=== PATIENT | female | born 1940 | race Caucasian/White ===

== ENCOUNTER 2020-06-22 11:03 | Day surgery (SDC) | payer MEDICARE, OTHER ==
[~2020-06-22 11:03] MED LIST: DIPRIVAN 200 MG/20 ML IV ONE; Ketamine HCl 50 MG/ML ONE
[2020-06-22] MEDS ORDERED: Depo-Medrol 40 MG/ML IM ONE (11:04)
[2020-06-22] MEDS ORDERED: BUPIVACAINE 0.5% VIAL IJ ONE (11:04)
[2020-06-22] MEDS ORDERED: PROVENTIL 2.5 MG/3 ML NEB IH ONE ×2 (12:32→13:17)
[2020-06-22 13:25] VITALS: PULSE 98; O2SAT 97
[2020-06-22] MEDS ORDERED: Lactated Ringers 1,000 ML IV ONE (13:54)
--- NOTE | 2020-06-23 14:56 | XRAY ---
21 seconds fluoroscopy time in surgery for bilateral SI joint injections.
--- NOTE | 2020-06-25 22:55 | XRAY ---
Indication: Bilateral SI joint injections. Intraoperative fluoroscopy was provided for 21 seconds. 4 digital spot images submitted for interpretation demonstrate a posterior needle tip projected over the inferior aspect of each sacroiliac joint. Correlate with intraoperative findings/report.
== END 2020-06-22 13:48 | disposition home or self-care (01) ==
LOC: SDC-PAIN 11:03
PROVIDERS: ATTEND Psychiatry & Neurology Pain Medicine
DX: M25.562 Pain in left knee (principal); M25.561 Pain in right knee; G20 Parkinson's disease; J44.9 Chronic obstructive pulmonary disease, unspecified; K21.9 Gastro-esophageal reflux disease without esophagitis; Z79.899 Other long term (current) drug therapy
CPT/HCPCS: 72202; 77002; 94640; G0260; 27096; 99100; J1030; J2704; J7609; A9270-GY

== ENCOUNTER 2020-07-20 10:52 | Day surgery (SDC) | payer MEDICARE, OTHER ==
[2020-07-20] MEDS ORDERED: Depo-Medrol 40 MG/ML IM ONE (10:53)
[2020-07-20] MEDS ORDERED: LIDOCAINE HCL 2% 100 MG/5 ML IJ ONE (10:53)
[2020-07-20] MEDS ORDERED: Lactated Ringers 1,000 ML IV ONE (13:49)
--- NOTE | 2020-07-20 14:17 | XRAY ---
Indication: Bilateral L4-S1 MBB. Intraoperative fluoroscopy was provided for 18 seconds. 2 digital spot images submitted for interpretation demonstrates posterior needle tips projecting over the expected left and right L4-S1 nerve roots. Correlate with intraoperative findings/report. Incidental L4-L5 spinous process fusion hardware.
--- NOTE | 2020-07-20 16:55 | XRAY ---
18 seconds of fluoroscopy was used in surgery for a bilateral L4-L5, L5-S1 MBB.
== END 2020-07-20 13:13 | disposition home or self-care (01) ==
LOC: SDC-PAIN 10:52
PROVIDERS: ATTEND Psychiatry & Neurology Pain Medicine
DX: M47.816 Spondylosis without myelopathy or radiculopathy, lumbar region (principal); G20 Parkinson's disease; J44.9 Chronic obstructive pulmonary disease, unspecified; K21.9 Gastro-esophageal reflux disease without esophagitis; Z79.899 Other long term (current) drug therapy
CPT/HCPCS: 64493; 64494; 72020; 77002; 99100; J1030; J2704

== ENCOUNTER 2020-08-03 14:12 | Day surgery (SDC) | payer MEDICARE, OTHER ==
[2020-08-03] MEDS ORDERED: BUPIVACAINE 0.5% VIAL IJ ONE (14:13)
[2020-08-03] MEDS ORDERED: Depo-Medrol 40 MG/ML IM ONE (14:13)
[2020-08-03] MEDS ORDERED: Ketamine HCl 50 MG/ML ONE (15:47)
[2020-08-03] MEDS ORDERED: DIPRIVAN 200 MG/20 ML IV ONE (15:47)
--- NOTE | 2020-08-03 16:35 | XRAY ---
Indication: Bilateral L4-S1 MBB. Intraoperative fluoroscopy was provided for 18 seconds. Single digital spot image submitted for interpretation demonstrates posterior needle tips projecting over the expected left and right L4-S1 nerve roots. Correlate with intraoperative findings/report. Incidental L4-L5 spinous process fusion hardware.
--- NOTE | 2020-08-03 16:41 | XRAY ---
18 seconds fluoroscopy time in surgery for bilateral L4-S1 MBB.
[2020-08-03] MEDS ORDERED: Lactated Ringers 1,000 ML IV ONE (16:52)
== END 2020-08-03 16:09 | disposition home or self-care (01) ==
LOC: SDC-PAIN 14:12
PROVIDERS: ATTEND Psychiatry & Neurology Pain Medicine
DX: M47.816 Spondylosis without myelopathy or radiculopathy, lumbar region (principal); G20 Parkinson's disease; K21.9 Gastro-esophageal reflux disease without esophagitis; J44.9 Chronic obstructive pulmonary disease, unspecified; Z79.899 Other long term (current) drug therapy
CPT/HCPCS: 64493; 64494; 72020; 77002; J1030; J2704

== ENCOUNTER 2020-10-19 10:02 | Day surgery (SDC) | payer MEDICARE, OTHER ==
[2020-10-19] MEDS ORDERED: Depo-Medrol 40 MG/ML IM ONE (10:03)
[2020-10-19] MEDS ORDERED: BUPIVACAINE 0.5% VIAL IJ ONE (10:03)
[2020-10-19] MEDS ORDERED: Ketamine HCl 50 MG/ML ONE (12:25)
[2020-10-19] MEDS ORDERED: DIPRIVAN 200 MG/20 ML IV ONE (12:25)
--- NOTE | 2020-10-19 13:34 | XRAY ---
Indication: Bilateral SI joint injection. Intraoperative fluoroscopy was provided for 3 seconds. 4 digital spot images submitted for interpretation demonstrates posterior needle tip projecting over the inferior left and right SI joints. Correlate with intraoperative findings/report.
--- NOTE | 2020-10-19 14:11 | XRAY ---
33 seconds of fluoroscopy was used in surgery for a bilateral SI joint injection.
[2020-10-19] MEDS ORDERED: Lactated Ringers 1,000 ML IV ONE (15:02)
== END 2020-10-19 13:00 | disposition home or self-care (01) ==
LOC: SDC-PAIN 10:02
PROVIDERS: ATTEND Psychiatry & Neurology Pain Medicine
DX: M46.1 Sacroiliitis, not elsewhere classified (principal); J44.9 Chronic obstructive pulmonary disease, unspecified; G20 Parkinson's disease; K21.9 Gastro-esophageal reflux disease without esophagitis; Z79.899 Other long term (current) drug therapy
CPT/HCPCS: 27096; 72202; 77002; G0260; 99100; J1030; J2704

== ENCOUNTER 2020-12-14 11:09 | Day surgery (SDC) | payer MEDICARE, OTHER ==
[2020-12-14] MEDS ORDERED: BUPIVACAINE 0.5% VIAL IJ ONE (11:10)
[2020-12-14] MEDS ORDERED: Depo-Medrol 40 MG/ML IM ONE (11:10)
[2020-12-14] MEDS ORDERED: DIPRIVAN 200 MG/20 ML IV ONE (12:34)
[2020-12-14] MEDS ORDERED: Ketamine HCl 50 MG/ML ONE (12:34)
--- NOTE | 2020-12-14 14:14 | XRAY ---
Indication: Bilateral L4-S1 MBB. Intraoperative fluoroscopy provided for 37 seconds. Single digital spot image submitted for interpretation demonstrates posterior needle tips projecting over the expected left and right L4-S1 nerve roots. Correlate with intraoperative findings and report. Incidental L4-L5 spinous process fusion hardware.
--- NOTE | 2020-12-14 14:16 | XRAY ---
37 seconds fluoroscopy time in surgery for bilateral L4-S1 MBB.
[2020-12-14] MEDS ORDERED: Lactated Ringers 1,000 ML IV ONE (16:21)
== END 2020-12-14 13:03 | disposition home or self-care (01) ==
LOC: SDC-PAIN 11:09
PROVIDERS: ATTEND Psychiatry & Neurology Pain Medicine
DX: M47.816 Spondylosis without myelopathy or radiculopathy, lumbar region (principal); J44.9 Chronic obstructive pulmonary disease, unspecified; G20 Parkinson's disease; K21.9 Gastro-esophageal reflux disease without esophagitis; Z79.899 Other long term (current) drug therapy
CPT/HCPCS: 64493; 64494; 72020; 77002; J1030; J2704

== ENCOUNTER 2021-01-25 09:50 | Day surgery (SDC) | payer MEDICARE, OTHER ==
[2021-01-25] MEDS ORDERED: Depo-Medrol 40 MG/ML IM ONE (09:51)
[2021-01-25] MEDS ORDERED: BUPIVACAINE 0.5% VIAL IJ ONE (09:51)
[2021-01-25] MEDS ORDERED: Xylocaine 1% Vial 30 ML PF IJ ONE (09:51)
[2021-01-25] MEDS ORDERED: DIPRIVAN 200 MG/20 ML IV ONE (11:15)
--- NOTE | 2021-01-25 11:28 | XRAY ---
Exam: AP upright portable chest film from 01/25/2021. Comparison: None. Indication: Same day service; preop; shortness of breath. Findings: The transverse heart size appears within normal limits. Atherosclerotic vascular calcification is seen within the aortic knob. There is mild tortuosity of both the ascending and descending thoracic aorta. Mild nonspecific chronic central bronchial wall thickening is seen. Minimal linear scarring/atelectasis is seen within the right midlung field and at the left lung base. No air space infiltrates to suggest pneumonia are seen. Pulmonary vascularity appears within normal limits. No Adalgisa B lines or pleural effusions are seen. There is no pneumothorax. The bones are demineralized. No acute osseous process is seen. Scattered arthritic changes are noted. Impression: 1. Minimal linear scarring/atelectasis is seen within the right midlung zone and left lung base. 2. I see no findings of heart failure/pulmonary edema, pneumonic infiltrate, or other acute cardiopulmonary disease.
--- NOTE | 2021-01-25 16:22 | XRAY ---
20 seconds fluoroscopy time in surgery for right L4-S1 RFA.
[2021-01-25] MEDS ORDERED: Lactated Ringers 1,000 ML IV ONE (16:40)
--- NOTE | 2021-01-26 22:12 | XRAY ---
Indication: Right L4-S1 RFA. Intraoperative fluoroscopy was provided for 20 seconds. 5 digital spot images submitted for interpretation demonstrate posterior needle tips projected over the expected course of the right L4-S1 nerve roots. Incidentally, there is a metallic orthopedic device posteriorly in the midline projected over the L4 and L5 spinous processes. Correlate with intraoperative findings/report.
== END 2021-01-25 12:30 | disposition home or self-care (01) ==
LOC: SDC-PAIN 09:50
PROVIDERS: ATTEND Psychiatry & Neurology Pain Medicine
DX: M47.816 Spondylosis without myelopathy or radiculopathy, lumbar region (principal); J44.9 Chronic obstructive pulmonary disease, unspecified; G20 Parkinson's disease; K21.9 Gastro-esophageal reflux disease without esophagitis; Z79.899 Other long term (current) drug therapy
CPT/HCPCS: 64635; 64636; 71045; 72100; 77002; J1030; J2001; J2704

== ENCOUNTER 2021-02-01 10:44 | Day surgery (SDC) | payer MEDICARE, OTHER ==
[2021-02-01] MEDS ORDERED: Xylocaine 1% Vial 30 ML PF IJ ONE (10:45)
[2021-02-01] MEDS ORDERED: Depo-Medrol 40 MG/ML IM ONE (10:45)
[2021-02-01] MEDS ORDERED: BUPIVACAINE 0.5% VIAL IJ ONE (10:45)
[2021-02-01] MEDS ORDERED: DIPRIVAN 200 MG/20 ML IV ONE (12:42)
--- NOTE | 2021-02-01 13:28 | XRAY ---
50 seconds fluoroscopy time in surgery for left L4-S1 RFA.
--- NOTE | 2021-02-01 13:38 | XRAY ---
Indication: Left L4-S1 RFA. Intraoperative fluoroscopy provided for 50 seconds. 2 digital spot images submitted for interpretation demonstrates posterior needle tips projecting over the expected left L4-S1 nerve roots. Correlate with intraoperative findings/report. Incidental L4-L5 spinous process fusion hardware.
[2021-02-01] MEDS ORDERED: Lactated Ringers 1,000 ML IV ONE (16:04)
== END 2021-02-01 13:00 | disposition home or self-care (01) ==
LOC: SDC-PAIN 10:44
PROVIDERS: ATTEND Psychiatry & Neurology Pain Medicine
DX: M47.816 Spondylosis without myelopathy or radiculopathy, lumbar region (principal); G20 Parkinson's disease; K21.9 Gastro-esophageal reflux disease without esophagitis; J44.9 Chronic obstructive pulmonary disease, unspecified; Z79.899 Other long term (current) drug therapy
CPT/HCPCS: 72100; 77002; J1030; J2001; J2704

== ENCOUNTER 2021-09-14 10:56 | Day surgery (SDC) | payer MEDICARE, OTHER ==
[2021-09-14] MEDS ORDERED: Depo-Medrol 40 MG/ML IM ONE (10:57)
[2021-09-14] MEDS ORDERED: Sodium Chloride 0.9% 10 ML FLUSH Syringe IJ ONE (10:57)
[2021-09-14] MEDS ORDERED: DIPRIVAN 200 MG/20 ML IV ONE (12:55)
[2021-09-14] MEDS ORDERED: Lactated Ringers 1,000 ML IV ONE (13:32)
--- NOTE | 2021-09-14 14:08 | XRAY ---
Indication: Left L3-L5 transforaminal CARLY. Intraoperative fluoroscopy provided for 42 seconds. 4 digital spot images submitted for interpretation demonstrates posterior needle tips projecting of the expected left L3 and L4 nerve roots. Small amount of contrast injected for needle tip placement. Correlate with intraoperative findings/report. Incidental L4-L5 spinous process fusion hardware.
--- NOTE | 2021-09-14 14:15 | XRAY ---
42 seconds fluoroscopy time in surgery for left L3-L5 transforaminal CARLY.
== END 2021-09-14 13:25 | disposition home or self-care (01) ==
LOC: SDC-PAIN 10:56
PROVIDERS: ATTEND Psychiatry & Neurology Pain Medicine
DX: M54.16 Radiculopathy, lumbar region (principal); Z79.899 Other long term (current) drug therapy
CPT/HCPCS: 64483; 64484; 72100; 77003; J1030; J2704; Q9966

== ENCOUNTER 2021-10-04 09:09 | Day surgery (SDC) | payer MEDICARE, OTHER ==
[2021-10-04] MEDS ORDERED: Sodium Chloride 0.9% 10 ML FLUSH Syringe IJ ONE (09:10)
[2021-10-04] MEDS ORDERED: Depo-Medrol 40 MG/ML IM ONE (09:10)
[2021-10-04] MEDS ORDERED: DIPRIVAN 200 MG/20 ML IV ONE (09:10)
[2021-10-04] MEDS ORDERED: Lactated Ringers 1,000 ML IV ONE (11:19)
--- NOTE | 2021-10-04 13:18 | XRAY ---
44 seconds of fluoroscopy was used in surgery for a left L3-L5 transforaminal CARLY.
--- NOTE | 2021-10-04 13:24 | XRAY ---
Indication: Left L3-L5 transforaminal CARLY. Intraoperative fluoroscopy provided for 44 seconds. 4 digital spot image submitted for interpretation demonstrates posterior needle tips projecting over the expected left L3 and L4 nerve roots. Small amount of contrast injected for needle tip placement. Correlate with intraoperative findings/report. Incidental L4-L5 spinous process fusion hardware.
== END 2021-10-04 12:00 | disposition home or self-care (01) ==
LOC: SDC-PAIN 09:09
PROVIDERS: ATTEND Psychiatry & Neurology Pain Medicine
DX: M54.16 Radiculopathy, lumbar region (principal); G20 Parkinson's disease; Z79.899 Other long term (current) drug therapy
CPT/HCPCS: 64483; 64484; 72100; 77003; J1030; J2704; Q9966

== ENCOUNTER 2021-12-20 09:03 | Day surgery (SDC) | payer MEDICARE, OTHER ==
[2021-12-20] MEDS ORDERED: Depo-Medrol 40 MG/ML IM ONE (09:04)
[2021-12-20] MEDS ORDERED: BUPIVACAINE 0.5% VIAL IJ ONE (09:04)
[2021-12-20] MEDS ORDERED: DIPRIVAN 200 MG/20 ML IV ONE (11:07)
[2021-12-20] MEDS ORDERED: Lactated Ringers 1,000 ML IV ONE (11:57)
--- NOTE | 2021-12-20 11:57 | XRAY ---
Indication: Bilateral L4-S1 MBB. Intraoperative fluoroscopy provided for 26 seconds. Single digital spot images submitted for interpretation demonstrates posterior needle tips projecting over expected left and right L4-S1 nerve roots. Correlate with intraoperative findings/report. Incidental L4-L5 spinous process fusion hardware.
--- NOTE | 2021-12-20 12:06 | XRAY ---
26 seconds of fluoroscopy was used in surgery for a bilateral L4-S1 MBB.
== END 2021-12-20 11:35 | disposition home or self-care (01) ==
LOC: SDC-PAIN 09:03
PROVIDERS: ATTEND Psychiatry & Neurology Pain Medicine
DX: M47.816 Spondylosis without myelopathy or radiculopathy, lumbar region (principal); Z79.899 Other long term (current) drug therapy
CPT/HCPCS: 64493; 64494; 72020; 77002; J1030; J2704

== ENCOUNTER 2022-01-03 12:58 | Day surgery (SDC) | payer MEDICARE, OTHER ==
[2022-01-03] MEDS ORDERED: Lactated Ringers 1,000 ML IV ONE (16:24)
--- NOTE | 2022-01-03 18:32 | XRAY ---
Indication: Right L4-S1 RFA. Intraoperative fluoroscopy provided for 32 seconds. 3 digital spot image submitted for interpretation demonstrates posterior needle tips projecting over the expected right L4-S1 nerve roots. Correlate with intraoperative findings/report. Incidental L4-S1 spinous process fusion hardware
--- NOTE | 2022-01-04 09:35 | XRAY ---
32 seconds fluoroscopy time in surgery for L4-S1 RFA.
== END 2022-01-03 16:52 | disposition home or self-care (01) ==
LOC: SDC-PAIN 12:58
PROVIDERS: ATTEND Psychiatry & Neurology Pain Medicine
DX: M47.816 Spondylosis without myelopathy or radiculopathy, lumbar region (principal); Z79.899 Other long term (current) drug therapy
CPT/HCPCS: 72100; 77002; 99100

== ENCOUNTER 2022-01-10 10:24 | Day surgery (SDC) | payer MEDICARE, OTHER ==
[2022-01-10] MEDS ORDERED: BUPIVACAINE 0.5% VIAL IJ ONE (10:25)
[2022-01-10] MEDS ORDERED: Xylocaine 1% Vial 30 ML PF IJ ONE (10:25)
[2022-01-10] MEDS ORDERED: Depo-Medrol 40 MG/ML IM ONE (10:25)
[2022-01-10] MEDS ORDERED: Lactated Ringers 1,000 ML IV ONE (13:07)
[2022-01-10] MEDS ORDERED: DIPRIVAN 200 MG/20 ML IV ONE (13:30)
--- NOTE | 2022-01-10 14:37 | XRAY ---
Indication: Left L4-S1 RFA. Intraoperative fluoroscopy provided for 24 seconds. 3 digital spot images submitted for interpretation demonstrates posterior needle tips projecting over the expected left L4-S1 nerve roots. Correlate with intraoperative findings/report. Incidental L4-L5 spinous process fusion hardware.
--- NOTE | 2022-01-10 15:06 | XRAY ---
24 seconds fluoroscopy time in surgery for left L4-S1 RFA.
== END 2022-01-10 14:00 | disposition home or self-care (01) ==
LOC: SDC-PAIN 10:24
PROVIDERS: ATTEND Psychiatry & Neurology Pain Medicine
DX: M47.816 Spondylosis without myelopathy or radiculopathy, lumbar region (principal); Z79.899 Other long term (current) drug therapy
CPT/HCPCS: 64635; 64636; 72100; 77002; 99100; J1030; J2001; J2704

== ENCOUNTER 2022-07-11 08:58 | Day surgery (SDC) | payer MEDICARE, OTHER ==
[2022-07-11] MEDS ORDERED: Sodium Chloride 0.9(Preservative Free) 10 ML IJ ONE (08:59)
[2022-07-11] MEDS ORDERED: Depo-Medrol 40 MG/ML IM ONE (08:59)
[2022-07-11] MEDS ORDERED: DIPRIVAN 200 MG/20 ML IV ONE (11:11)
[2022-07-11] MEDS ORDERED: Lactated Ringers 1,000 ML IV ONE (11:27)
--- NOTE | 2022-07-11 12:13 | XRAY ---
Indication: Right L3-L5 transforaminal CARLY. Intraoperative fluoroscopy provided for 26 seconds. 4 digital spot image submitted for interpretation demonstrates posterior needle tips projecting over the expected right L3 and L4 nerve roots. Small amount of contrast injected for needle tip placement. Correlate with intraoperative findings/report. Incidental L4-L5 spinous process fusion hardware.
--- NOTE | 2022-07-11 12:25 | XRAY ---
26 seconds of fluoroscopy was used surgery for a right L3-L5 transforaminal CARLY.
== END 2022-07-11 11:31 | disposition home or self-care (01) ==
LOC: SDC-PAIN 08:58
PROVIDERS: ATTEND Psychiatry & Neurology Pain Medicine
DX: M54.16 Radiculopathy, lumbar region (principal); Z79.899 Other long term (current) drug therapy
CPT/HCPCS: 64483; 64484; 72100; 77003; J1030; J2704; Q9966

== ENCOUNTER 2022-08-15 10:06 | Day surgery (SDC) | payer MEDICARE, OTHER ==
[2022-08-15] MEDS ORDERED: Sodium Chloride 0.9(Preservative Free) 10 ML IJ ONE (10:07)
[2022-08-15] MEDS ORDERED: Depo-Medrol 40 MG/ML IM ONE (10:07)
[2022-08-15] MEDS ORDERED: Lactated Ringers 1,000 ML IV ONE (11:54)
[2022-08-15] MEDS ORDERED: MORPHINE SULFATE 2 MG INJ ONE (12:16)
--- NOTE | 2022-08-15 13:21 | XRAY ---
Indication: Left L3-L5 transforaminal CARLY. Intraoperative fluoroscopy provided for 1 minute 17 seconds. 3 digital spot image submitted for interpretation demonstrates posterior needle tips projecting over the expected left L3 and L4 nerve roots. Small amount of contrast injected for needle tip placement. Correlate with intraoperative findings/report. Incidental L4-L5 spinous process fusion hardware.
--- NOTE | 2022-08-15 14:28 | XRAY ---
1 minute 17 seconds of fluoroscopy was used in surgery for a left L3-L5 transforaminal CARLY.
== END 2022-08-15 12:35 | disposition home or self-care (01) ==
LOC: SDC-PAIN 10:06
PROVIDERS: ATTEND Psychiatry & Neurology Pain Medicine
DX: M54.16 Radiculopathy, lumbar region (principal); Z79.899 Other long term (current) drug therapy
CPT/HCPCS: 64493; 64494; 72100; 77003; J1030; J2270; Q9966

== ENCOUNTER 2022-10-10 13:00 | Day surgery (SDC) | payer MEDICARE, OTHER ==
[2022-10-10] MEDS ORDERED: Sodium Chloride 0.9(Preservative Free) 10 ML IJ ONE (13:01)
[2022-10-10] MEDS ORDERED: Depo-Medrol 40 MG/ML IM ONE (13:01)
[2022-10-10] MEDS ORDERED: DIPRIVAN 200 MG/20 ML IV ONE (15:13)
--- NOTE | 2022-10-10 16:40 | XRAY ---
Indication: Right L3-L5 transforaminal CARLY. Intraoperative fluoroscopy provided for 40 seconds. 6 digital spot image submitted for interpretation demonstrates posterior needle tips projecting over the expected right L3 and L4 nerve roots. Small amount of contrast injected for needle tip placement. Correlate with intraoperative findings/report. Incidental L4-L5 spinous process fusion hardware.
[2022-10-10] MEDS ORDERED: Lactated Ringers 1,000 ML IV ONE (16:42)
--- NOTE | 2022-10-10 16:42 | XRAY ---
40 seconds fluoroscopy time in surgery for right L3-L5 transforaminal CARLY.
== END 2022-10-10 15:45 | disposition home or self-care (01) ==
LOC: SDC-PAIN 13:00
PROVIDERS: ATTEND Psychiatry & Neurology Pain Medicine
DX: M54.16 Radiculopathy, lumbar region (principal)
CPT/HCPCS: 64483; 64484; 72100; 77003; J1030; J2704; Q9966

== ENCOUNTER 2023-03-20 13:29 | Day surgery (SDC) | payer MEDICARE, OTHER ==
[2023-03-20] MEDS ORDERED: Sodium Chloride 0.9(Preservative Free) 10 ML IJ ONE (13:30)
[2023-03-20] MEDS ORDERED: Depo-Medrol 40 MG/ML IM ONE (13:30)
[2023-03-20] MEDS ORDERED: Decadron 4 MG INJ IV ONE (13:30)
[2023-03-20] MEDS ORDERED: LIDOCAINE HCL 1% 50 MG/5 ML VL PF IJ ONE (13:30)
[2023-03-20] MEDS ORDERED: DIPRIVAN 200 MG/20 ML IV ONE (16:09)
[2023-03-20] MEDS ORDERED: Lactated Ringers 1,000 ML IV ONE (17:28)
--- NOTE | 2023-03-20 20:55 | XRAY ---
Indication: Right L3-L5 transforaminal CARLY. Intraoperative fluoroscopy provided for 38 seconds. 4 digital spot images submitted for interpretation demonstrates posterior needle tips projecting over the expected right L3 and L4 nerve roots. Small amount of contrast injected for needle tip placement. Correlate with intraoperative findings/report. Incidental L4-L5 spinous process fusion hardware.
--- NOTE | 2023-03-20 20:57 | XRAY ---
Indication: Right piriformis injection. Intraoperative fluoroscopy provided for 12 seconds. Single digital spot images submitted for interpretation demonstrates posterior needle tip projecting over the expected right piriformis muscle. Small amount of contrast injected for needle tip placement. Correlate with intraoperative findings/report.
--- NOTE | 2023-03-21 09:02 | XRAY ---
38 seconds of fluoroscopy was used in surgery for a right L3-L5 transforaminal CARLY.
--- NOTE | 2023-03-21 09:04 | XRAY ---
12 seconds of fluoroscopy was used in surgery for a right piriformis injection.
== END 2023-03-20 16:40 | disposition home or self-care (01) ==
LOC: SDC-PAIN 13:29
PROVIDERS: ATTEND Psychiatry & Neurology Pain Medicine
DX: M54.16 Radiculopathy, lumbar region (principal); M79.18 Myalgia, other site; Z79.899 Other long term (current) drug therapy
CPT/HCPCS: 20552; 64483; 64484; 72100; 72170; 77002; 77003; 99100; J1030; J1100; J2001; J2704; Q9966

== ENCOUNTER 2023-05-22 10:51 | Day surgery (SDC) | payer MEDICARE, OTHER ==
[2023-05-22] MEDS ORDERED: Depo-Medrol 40 MG/ML IM ONE (10:52)
[2023-05-22] MEDS ORDERED: Sodium Chloride 0.9(Preservative Free) 10 ML IJ ONE (10:52)
[2023-05-22] MEDS ORDERED: DIPRIVAN 200 MG/20 ML IV ONE (12:48)
[2023-05-22] MEDS ORDERED: Lactated Ringers 1,000 ML IV ONE (13:38)
--- NOTE | 2023-05-22 14:32 | XRAY ---
Indication: Left L3-L5 transforaminal CARLY. Intraoperative fluoroscopy provided for 48 seconds. 6 digital spot images submitted for interpretation demonstrates posterior needle tips projecting over the expected left L3 and L4 nerve roots. Small amount of contrast injected for needle tip placement. Correlate with intraoperative findings/report. Incidental L4-L5 spinous process fusion hardware.
--- NOTE | 2023-05-22 14:51 | XRAY ---
48 seconds of fluoroscopy was used in surgery for a left L3-L5 transforaminal CARLY.
== END 2023-05-22 13:18 | disposition home or self-care (01) ==
LOC: SDC-PAIN 10:51
PROVIDERS: ATTEND Psychiatry & Neurology Pain Medicine
DX: M54.16 Radiculopathy, lumbar region (principal)
CPT/HCPCS: 64483; 64484; 72100; 77003; J1030; J2704; Q9966

== ENCOUNTER 2023-07-03 11:52 | Day surgery (SDC) | payer MEDICARE, OTHER ==
[2023-07-03] MEDS ORDERED: BUPIVACAINE 0.5% VIAL IJ ONE (11:53)
[2023-07-03] MEDS ORDERED: LIDOCAINE HCL 1% 50 MG/5 ML VL PF IJ ONE (11:53)
[2023-07-03] MEDS ORDERED: Depo-Medrol 40 MG/ML IM ONE (11:53)
[2023-07-03] MEDS ORDERED: DIPRIVAN 200 MG/20 ML IV ONE (14:16)
[2023-07-03] MEDS ORDERED: Xylocaine-Mpf 2% 5 Ml Vial ONE (14:17)
[2023-07-03] MEDS ORDERED: Lactated Ringers 1,000 ML IV ONE (14:44)
[2023-07-03] MEDS ORDERED: MORPHINE SULFATE 2 MG INJ ONE (14:54)
--- NOTE | 2023-07-03 15:17 | XRAY ---
Indication: Right L4-S1 RFA. Intraoperative fluoroscopy provided for 24 seconds. 7 digital spot image submitted for interpretation demonstrates posterior needle tips projecting over the expected right L4-S1 nerve roots. Correlate with intraoperative findings/report. Incidental L4-L5 spinous process fusion hardware.
--- NOTE | 2023-07-03 15:19 | XRAY ---
24 seconds of fluoroscopy was used in surgery for right L4-S1 RFA.
== END 2023-07-03 13:25 | disposition home or self-care (01) ==
LOC: SDC-PAIN 11:52
PROVIDERS: ATTEND Psychiatry & Neurology Pain Medicine
DX: M47.816 Spondylosis without myelopathy or radiculopathy, lumbar region (principal); Z79.899 Other long term (current) drug therapy
CPT/HCPCS: 64635; 64636; 72100; 77002; 99100; J1030; J2001; J2270; J2704

== ENCOUNTER 2023-07-10 11:41 | Day surgery (SDC) | payer MEDICARE, OTHER ==
[2023-07-10] MEDS ORDERED: XYLOCAINE 1% HCL 20 ML MDV IJ ONE (11:42)
[2023-07-10] MEDS ORDERED: BUPIVACAINE 0.5% VIAL IJ ONE (11:42)
[2023-07-10] MEDS ORDERED: Depo-Medrol 40 MG/ML IM ONE (11:42)
[2023-07-10] MEDS ORDERED: DIPRIVAN 200 MG/20 ML IV ONE (16:07)
--- NOTE | 2023-07-10 17:01 | XRAY ---
Indication: Left L4-S1 transforaminal CARLY. Intraoperative fluoroscopy provided for 24 seconds. 6 digital spot images submitted for interpretation demonstrates posterior needle tips projecting over the expected left L4 and L5 nerve roots. Small amount of contrast injected for needle tip placement. Correlate with intraoperative findings/report. Incidental L4-L5 spinous processes fusion hardware.
[2023-07-10] MEDS ORDERED: Lactated Ringers 1,000 ML IV ONE (17:04)
--- NOTE | 2023-07-10 17:04 | XRAY ---
24 seconds of fluoroscopy was used in surgery for a left L4-S1 RFA.
== END 2023-07-10 16:42 | disposition home or self-care (01) ==
LOC: SDC-PAIN 11:41
PROVIDERS: ATTEND Psychiatry & Neurology Pain Medicine
DX: M47.816 Spondylosis without myelopathy or radiculopathy, lumbar region (principal); Z79.899 Other long term (current) drug therapy
CPT/HCPCS: 64635; 64636; 72100; 77002; 99100; J1030; J2704

== ENCOUNTER 2023-10-09 11:12 | Day surgery (SDC) | payer MEDICARE, OTHER ==
[2023-10-09] MEDS ORDERED: Sodium Chloride 0.9(Preservative Free) 10 ML IJ ONE (11:13)
[2023-10-09] MEDS ORDERED: Decadron 4 MG INJ IV ONE (11:13)
[2023-10-09] MEDS ORDERED: DIPRIVAN 200 MG/20 ML IV ONE (13:40)
[2023-10-09] MEDS ORDERED: Lactated Ringers 1,000 ML IV ONE (14:11)
--- NOTE | 2023-10-09 15:00 | XRAY ---
Indication: Left L3-L5 transforaminal CARLY. Intraoperative fluoroscopy provided for 45 seconds. 5 digital spot image submitted for interpretation demonstrates posterior needle tips projecting over the expected left L3 and L4 nerve roots. Small amount of contrast injected for needle tip placement. Correlate with intraoperative findings/report. Incidental L4-L5 spinous process fusion hardware.
--- NOTE | 2023-10-09 16:56 | XRAY ---
45 seconds of fluoroscopy was used in surgery for a left L3-L5 transforaminal CARLY.
== END 2023-10-09 14:10 | disposition home or self-care (01) ==
LOC: SDC-PAIN 11:12
PROVIDERS: ATTEND Psychiatry & Neurology Pain Medicine
DX: M54.16 Radiculopathy, lumbar region (principal)
CPT/HCPCS: 64483; 64484; 72100; 77003; J1100; J2704; Q9966

== ENCOUNTER 2024-02-19 15:25 | Day surgery (SDC) | payer MEDICARE, OTHER ==
[2024-02-19] MEDS ORDERED: BUPIVACAINE 0.5% VIAL IJ ONE (15:26)
[2024-02-19] MEDS ORDERED: XYLOCAINE-MPF 1% 5ML SDV IJ ONE (15:26)
[2024-02-19] MEDS ORDERED: Depo-Medrol 40 MG/ML IM ONE (15:26)
--- NOTE | 2024-02-19 20:06 | XRAY ---
Indication: Bilateral SI joint injection. Intraoperative fluoroscopy provided for 42 seconds. 2 digital spot images submitted for interpretation demonstrates posterior needle tips projecting over the expected left and right SI joint. Small amount of contrast injected for needle tip placement. Correlate with intraoperative findings/report. Incidental lower cervical fusion hardware.
--- NOTE | 2024-02-20 09:18 | XRAY ---
42 seconds of fluoroscopy was used in surgery for a bilateral sacroiliac joint injection.
== END 2024-02-19 17:38 | disposition home or self-care (01) ==
LOC: SDC-PAIN 15:25
PROVIDERS: ATTEND Psychiatry & Neurology Pain Medicine
DX: M46.1 Sacroiliitis, not elsewhere classified (principal)
CPT/HCPCS: 27096; 72202; 77002; G0260; J1010; Q9966

== ENCOUNTER 2024-07-22 14:38 | Day surgery (SDC) | payer MEDICARE, OTHER ==
[2024-07-22] MEDS ORDERED: BUPIVACAINE 0.5% VIAL IJ ONE (14:39)
[2024-07-22] MEDS ORDERED: LIDOCAINE HCL 1% AMPUL 5 ML IJ ONE (14:39)
[2024-07-22] MEDS ORDERED: Depo-Medrol 40 MG/ML IM ONE (14:39)
--- NOTE | 2024-07-22 20:51 | XRAY ---
Indication: Left shoulder and subacromial bursa injection. Intraoperative fluoroscopy provided for 34 seconds. 3 digital spot images submitted for interpretation demonstrates needle tip projecting over left glenohumeral joint superiorly. Second needle tip subacromial. Small amount of contrast injected for both needle tip placement. Correlate with intraoperative findings/report.
--- NOTE | 2024-07-23 09:55 | XRAY ---
34 seconds of fluoroscopy were used in surgery for a left intra-articular shoulder and left subacromial bursa injection.
== END 2024-07-22 17:30 | disposition home or self-care (01) ==
LOC: SDC-PAIN 14:38
PROVIDERS: ATTEND Psychiatry & Neurology Pain Medicine
DX: M19.012 Primary osteoarthritis, left shoulder (principal)
CPT/HCPCS: 20610; 73030; 77002; Q9966

== ENCOUNTER 2024-09-09 11:02 | Day surgery (SDC) | payer MEDICARE, OTHER ==
[2024-09-09] MEDS ORDERED: BUPIVACAINE 0.5% VIAL IJ ONE (11:03)
[2024-09-09] MEDS ORDERED: Depo-Medrol 40 MG/ML IM ONE (11:03)
[2024-09-09] MEDS ORDERED: DUONEB 0.5-3 MG/3 ml Neb IH ONE (11:39)
[2024-09-09] MEDS: DUONEB 0.5-3 MG/3 ml Neb IH ONE (11:45)
[2024-09-09] MEDS ORDERED: DIPRIVAN 200 MG/20 ML IV ONE (12:44)
[2024-09-09 13:35] VITALS: PULSE 80; RESP 22; O2SAT 98
--- NOTE | 2024-09-09 14:00 | XRAY ---
Indication: Bilateral SI joint injection. Intraoperative fluoroscopy provided for 29 seconds. 2 digital spot image submitted for interpretation demonstrates posterior needle tips projecting over left and right SI joints. Small amount of contrast injected for needle tip placement. Correlate with intraoperative findings/report. Incidental lower lumbar fusion hardware
--- NOTE | 2024-09-09 14:02 | XRAY ---
29 seconds of fluoroscopy was used in surgery for a bilateral sacroiliac joint injection.
== END 2024-09-09 13:25 | disposition home or self-care (01) ==
LOC: SDC-PAIN 11:02
PROVIDERS: ATTEND Psychiatry & Neurology Pain Medicine
DX: M46.1 Sacroiliitis, not elsewhere classified (principal)
CPT/HCPCS: 27096; 72202; 77002; 94640; 99100; J2704; Q9966; A9270-GY

== ENCOUNTER 2025-09-01 12:02 | Day surgery (SDC) | payer MEDICARE, OTHER ==
[2025-09-01] MEDS ORDERED: methylPREDNISolone acetate IM ONE (12:03)
[2025-09-01] MEDS ORDERED: BUPIVACAINE 0.5% VIAL IJ ONE (12:03)
[2025-09-01] MEDS ORDERED: propofoL IV ONE (13:41)
[2025-09-01] MEDS ORDERED: Xylocaine-Mpf 2% 5 Ml Vial ONE (13:45)
[2025-09-01] MEDS ORDERED: Lactated Ringers 1,000 ML IV ONE (13:59)
--- NOTE | 2025-09-01 16:39 | XRAY ---
Indication: Right SI joint injection. Intraoperative fluoroscopy provided for 15 seconds. Single digital spot image submitted for interpretation demonstrates posterior needle tip projecting over right SI joint. Small amount of contrast injected for needle tip placement. Correlate with intraoperative findings/report. Incidental incompletely visualized lower lumbar fusion hardware.
--- NOTE | 2025-09-01 17:01 | XRAY ---
15 seconds of fluoroscopy was used in surgery for a right sacroiliac joint injection.
== END 2025-09-01 14:15 | disposition home or self-care (01) ==
LOC: SDC-PAIN 12:02
PROVIDERS: ATTEND Psychiatry & Neurology Pain Medicine
DX: M46.1 Sacroiliitis, not elsewhere classified (principal)